=== PATIENT | female | born 1960 | race Caucasian/White ===

== ENCOUNTER → 2017-06-16 | Outpatient (CLI) | payer OTHER ==
[~2017-06-16] MED LIST: ASPI-624 PO; HYDR200T46 PO; IBUP-1773 PO; LVT.112T PO; MTF500T PO; MULT-974 PO; PRD10T PO
--- NOTE | 2017-06-16 17:06 | Diagnostic Imaging Report ---
PROCEDURE: CT chest without contrast. TECHNIQUE: Multiple contiguous axial images were obtained through the chest without the use of intravenous contrast. INDICATION: Pulmonary edema. Cough. COMPARISON: 11/08/2013. FINDINGS: Lungs demonstrate interstitial thickening with fibrotic changes and minimal honeycombing in the lung bases along the subpleural aspect of each lungs in the bases. 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 The fibrotic changes are basilar and peripheral predominant. There is mild bronchiectasis in the lung bases. There is no significant consolidation, mass or suspicious nodule identified. No significant pleural or pericardial effusion. The thoracic aorta is normal in caliber. No mediastinal mass or lymphadenopathy is seen. The hilar vessels are not opacified with no obvious hilar lymphadenopathy identified. No axillary lymphadenopathy seen. Sections of the upper abdomen demonstrate cholecystectomy clips. The osseous structures demonstrate bridging syndesmophytes and mild sclerotic curvature. IMPRESSION: Fibrotic changes predominantly in the lung bases and periphery of the lungs probably related to fibrotic NSIP with no significant change from 11/08/2013. Dictated by: Dictated on workstation # [id number]
== END ==
LOC: RAD 12:35
PROVIDERS: ATTEND Nurse Practitioner Family
DX: J84.10 Pulmonary fibrosis, unspecified (principal)
CPT/HCPCS: 71250

== ENCOUNTER → 2017-06-29 | Outpatient (CLI) | payer OTHER ==
[2017-06-29 12:14] LABS: BASOPHILS % (AUTO) 0 % (0-10); EOSINOPHILS % (AUTO) 0 % (0-10); LYMPHOCYTES # (AUTO) 1.2 X 10^3 (1.0-4.0); LYMPHOCYTES % (AUTO) 12 % (12-44); MEAN CORPUSCULAR HEMOGLOBIN 26 PG (25-34); MEAN CORPUSCULAR HGB CONC 31 G/DL (32-36); MEAN CORPUSCULAR VOLUME 84 FL (80-99); MEAN PLATELET VOLUME 9.4 FL (7.4-10.4); MONOCYTES # (AUTO) 0.3 X 10^3 (0.0-1.0); MONOCYTES % (AUTO) 3 % (0-12); NEUTROPHILS # (AUTO) 8.4 X 10^3 (1.8-7.8); NEUTROPHILS % (AUTO) 85 % (42-75); PLATELET COUNT 332 10^3/uL (130-400); RED BLOOD COUNT 4.83 10^6/uL (4.35-5.85); RED CELL DISTRIBUTION WIDTH 14.9 % (10.0-14.5); WHITE BLOOD COUNT 9.9 10^3/uL (4.3-11.0)
[2017-06-29 12:38] LABS: ALANINE AMINOTRANSFERASE 18 U/L (0-55); ALBUMIN 3.8 GM/DL (3.2-4.5); ANION GAP 10 MMOL/L (5-14); ASPARTATE AMINO TRANSFERASE 11 U/L (5-34); BILIRUBIN,TOTAL 0.5 MG/DL (0.1-1.0); BLOOD UREA NITROGEN 17 MG/DL (7-18); BUN/CREATININE RATIO 22; CALCIUM 9.6 MG/DL (8.5-10.1); CARBON DIOXIDE 24 MMOL/L (21-32); CHLORIDE 102 MMOL/L (98-107); CREATININE SERUM 0.78 MG/DL (0.60-1.30); GFR ESTIMATED > 60; GLUCOSE 234 MG/DL (70-105); POTASSIUM 4.4 MMOL/L (3.6-5.0); SODIUM 136 MMOL/L (135-145); TOTAL PROTEIN 6.7 GM/DL (6.4-8.2); hs C REACTIVE PROTEIN 0.25 MG/DL (0.00-0.50)
[2017-06-29 12:49] LABS: ERYTHROCYTE SEDIMENTATION RATE 18 MM/HR (0-30)
[2017-06-30 16:44] LABS: ANCA PATTERN Not Indicated; ANTI NEUTROPHIL CYTOPLASM <1:20 (<1:20)
== END ==
LOC: LAB 11:42
PROVIDERS: ATTEND Nurse Practitioner Family
DX: M12.9 Arthropathy, unspecified (principal); J84.9 Interstitial pulmonary disease, unspecified
CPT/HCPCS: 36415; 80053; 85025; 85652; 86021; 86038; 86141

== ENCOUNTER → 2017-07-16 | Outpatient (CLI) | payer OTHER ==
[~2017-07-16] MED LIST changes: +RT-ALBUTEROL SULF 2.5 MG/3 ML PRE-MIX VIAL IH ONE
== END ==
LOC: RT 11:15
PROVIDERS: ATTEND Nurse Practitioner Family
DX: J84.9 Interstitial pulmonary disease, unspecified (principal); R06.00 Dyspnea, unspecified; M12.9 Arthropathy, unspecified
CPT/HCPCS: 94060; 94726; 94729

== ENCOUNTER → 2017-08-17 | Outpatient (CLI) | payer OTHER ==
[~2017-08-17] MED LIST changes: -RT-ALBUTEROL SULF 2.5 MG/3 ML PRE-MIX VIAL IH ONE
[2017-08-17 09:42] LABS: PEP REPORT SEE PATH REPORT
[2017-08-17 09:45] LABS: BASOPHILS # (AUTO) 0.1 10^3/uL (0.0-0.1); BASOPHILS % (AUTO) 0 % (0-10); EOSINOPHILS # (AUTO) 0.1 10^3/uL (0.0-0.3); EOSINOPHILS % (AUTO) 1 % (0-10); LYMPHOCYTES # (AUTO) 1.2 X 10^3 (1.0-4.0); LYMPHOCYTES % (AUTO) 11 % (12-44); MEAN CORPUSCULAR HEMOGLOBIN 26 PG (25-34); MEAN CORPUSCULAR HGB CONC 31 G/DL (32-36); MEAN CORPUSCULAR VOLUME 86 FL (80-99); MEAN PLATELET VOLUME 9.1 FL (7.4-10.4); MONOCYTES # (AUTO) 0.4 X 10^3 (0.0-1.0); MONOCYTES % (AUTO) 4 % (0-12); NEUTROPHILS % (AUTO) 85 % (42-75); PLATELET COUNT 322 10^3/uL (130-400); RED CELL DISTRIBUTION WIDTH 14.6 % (10.0-14.5); WHITE BLOOD COUNT 11.8 10^3/uL (4.3-11.0)
[2017-08-17 10:04] LABS: ALANINE AMINOTRANSFERASE 12 U/L (0-55); ALBUMIN 3.5 GM/DL (3.2-4.5); ANION GAP 13 MMOL/L (5-14); ASPARTATE AMINO TRANSFERASE 12 U/L (5-34); BILIRUBIN,TOTAL 0.5 MG/DL (0.1-1.0); BLOOD UREA NITROGEN 18 MG/DL (7-18); BUN/CREATININE RATIO 23; CALCIUM 8.2 MG/DL (8.5-10.1); CARBON DIOXIDE 21 MMOL/L (21-32); CHLORIDE 103 MMOL/L (98-107); GFR ESTIMATED > 60; GLUCOSE 314 MG/DL (70-105); POTASSIUM 3.8 MMOL/L (3.6-5.0); SODIUM 137 MMOL/L (135-145); URIC ACID 2.8 MG/DL (2.6-7.2); hs C REACTIVE PROTEIN 1.08 MG/DL (0.00-0.50)
[2017-08-17 10:17] LABS: ERYTHROCYTE SEDIMENTATION RATE 21 MM/HR (0-30)
--- NOTE | 2017-08-17 11:15 | Diagnostic Imaging Report ---
EXAMINATION: Three views of the left hand and three views of the right hand are obtained. INDICATION: Rheumatoid arthritis. FINDINGS: Left hand radiographs demonstrate no erosive arthritic changes. There is mild joint space narrowing and osteophyte formation at the third metacarpophalangeal joint. Mild degenerative changes at the DIP and PIP joints seen. Right hand radiographs demonstrate no erosive arthritis with mild degenerative changes mostly at the DIP joints and at the carpometacarpal joint at the base of the thumb. IMPRESSION: No evidence of erosive arthritis. Mild degenerative changes. Dictated by: Dictated on workstation # [id number]
--- NOTE | 2017-08-17 20:07 | Diagnostic Imaging Report ---
Three views of the left foot and three views of the right foot. INDICATION: Rheumatoid arthritis. FINDINGS: Left foot: There is varus deformity at the tarsometatarsal joints and sclerotic changes. This could be secondary to old injury or from prior inflammatory arthritis. No erosive arthritic changes are seen. There is mild hallux valgus. Degenerative changes at the first tarsometatarsal joint seen. No acute fracture. Prominent calcaneal spurs and flattening of the plantar arch seen. Right foot: There are sclerotic changes at the tarsometatarsal joints probably related to degenerative changes. Also dorsal osteophytes at the navicular cuneiform articulation level are seen. There is a calcaneal spur and spurring at the Achilles tendon insertion. Flattening of the plantar arch is noted. IMPRESSION: Degenerative changes seen with flattening of the plantar arch more prominent on the left side. No evidence of erosive arthritis. Dictated by: Dictated on workstation # [id number]
[2017-08-18 05:18] LABS: IMMUNOGLOBULIN IGA 149 mg/dL (71-263)
[2017-08-18 08:25] LABS: VITAMIN D 25-HYDROXY (TOTAL) 19 ng/mL (30-100)
[2017-08-18 08:36] LABS: IMMUNOGLOBULIN IGG 579 mg/dL (672-1680)
[2017-08-18 08:37] LABS: IMMUNOGLOBULIN IGG1 450 mg/dL (382-929); IMMUNOGLOBULIN IGG2 75 mg/dL (242-700); IMMUNOGLOBULIN IGG3 43 mg/dL (22-176); IMMUNOGLOBULIN IGG4 33 mg/dL (0-86)
[2017-08-18 08:38] LABS: IMMUNOGLOBULIN IGM 47 mg/dL (47-209)
[2017-08-18 21:13] LABS: TB GOLD MITOGEN-NIL VALUE 3.36 IU/mL (0.50-10.00); TB GOLD QUANTIFERON INTERP Negative (Negative)
[2017-08-19 09:17] LABS: TB GOLD NIL VALUE 0.35 IU/mL (0.00-7.99); TB GOLD TB ANTIGEN-NIL VALUE <0.00 IU/mL (0.00-0.34)
[2017-08-19 09:27] LABS: CYCLIC CITRULLUINATED PEPTIDE 123.9 Units (0.0-19.0)
[2017-08-19 15:33] LABS: IMMUNOFIX PATH REPORT NUMBER Complete (Complete)
== END ==
LOC: RAD 09:07
PROVIDERS: ATTEND Internal Medicine Rheumatology
DX: M19.071 Primary osteoarthritis, right ankle and foot (principal); M19.072 Primary osteoarthritis, left ankle and foot; M19.041 Primary osteoarthritis, right hand; M19.042 Primary osteoarthritis, left hand; M05.79 Rheumatoid arthritis with rheumatoid factor of multiple sites without organ or systems involvement; J84.9 Interstitial pulmonary disease, unspecified
CPT/HCPCS: 36415; 80053; 80074; 82306; 82784; 82787; 84155; 84165; 84550; 85025; 85652; 86141; 86200; 86334; 86430; 86480

== ENCOUNTER → 2017-11-05 | Outpatient (CLI) | payer OTHER ==
--- NOTE | 2017-11-05 15:01 | Diagnostic Imaging Report ---
INDICATION: Routine screening. COMPARISON: 10/16/2015 and 04/18/2014. TECHNIQUE: Screening digital mammography was performed bilaterally with a Computer Aided Detection (CAD) system. FINDINGS: Scattered fibroglandular densities are identified bilaterally. There are scattered benign-appearing calcifications bilaterally. The parenchymal pattern is stable. No mass or malignant appearing microcalcifications are seen. The axillae are unremarkable. IMPRESSION: No mammographic features suspicious for malignancy are identified. ACR BI-RADS Category 2: Benign findings. Result letter will be mailed to the patient. Note: At least 10% of breast cancer is not imaged by mammography. Dictated by: Dictated on workstation # [id number]
== END ==
LOC: RAD 10:12
PROVIDERS: ATTEND Nurse Practitioner Family
DX: Z12.31 Encounter for screening mammogram for malignant neoplasm of breast (principal)
CPT/HCPCS: 77067

== ENCOUNTER → 2017-12-07 | Outpatient (CLI) | payer OTHER ==
[~2017-12-07] MED LIST changes: +CATHETER FLUSH 10 ML SYR IV PRN; +REGADENOSON 0.4 MG/5 ML SYR (LEXISCAN) IV ONE
[2017-12-07 13:12] VITALS: BP 123/74
--- NOTE | 2017-12-07 20:58 | STRESS TEST ---
DATE OF SERVICE: 12/07/2017 PROCEDURE PERFORMED: Resting and post regadenoson technetium-99m Tetrofosmin SPECT CT imaging. ORDERING PHYSICIAN: RADHA Tanner. PRIMARY PHYSICIAN: Addis Ramirez DO. CLINICAL DIAGNOSIS: Shortness of breath, chest discomfort. Baseline images were carried out after injection of 10.35 mCi of technetium-99m Tetrofosmin. This was followed by 0.4 mg of regadenoson and 29.6 mCi technetium-99m Tetrofosmin for stress imaging. The electrocardiogram showed sinus rhythm with isolated premature ventricular contractions. The electrocardiogram did not change significantly with the regadenoson infusion. The patient tolerated the procedure well. Review of images at rest and following stress does not indicate any significant perfusion defects consistent with significant myocardial ischemia or infarction. Gated images show normal global left ventricular systolic function, normal regional wall motion. Left ventricular ejection fraction is calculated to be 59%. Left ventricular end diastolic volume is 48 mL. TID is absent (1.07). CONCLUSIONS: 1. No evidence of significant myocardial ischemia or infarction in this study. 2. Normal regional wall motion. 3. Normal global left ventricular systolic function with a calculated ejection fraction of 59%. Job ID: [id number] DocumentID: [id number] Dictated Date: 12/07/2017 17:47:09 [employer] Date: 12/07/2017 20:58:03 Dictated By: KATHLEEN ESCALERA MD, MA, FACP, FACC,
== END ==
LOC: CARD 10:14
PROVIDERS: ATTEND Nurse Practitioner Family
DX: I36.1 Nonrheumatic tricuspid (valve) insufficiency (principal); R07.89 Other chest pain; R06.09 Other forms of dyspnea
CPT/HCPCS: 78452; 93017

== ENCOUNTER 2017-12-23 09:00 | Outpatient (RCR) | payer OTHER ==
[2017-12-07 09:00] VITALS: BP 145/60
[2017-12-07 10:00] VITALS: BP 132/60
[2017-12-09 08:50] VITALS: BP 150/60
[2017-12-09 10:00] VITALS: BP 120/60
[2017-12-14 09:00] VITALS: BP 138/82
[2017-12-14 10:00] VITALS: BP 130/80
[2017-12-16 08:45] VITALS: BP 120/74
[2017-12-16 09:55] VITALS: BP 118/70
[2017-12-21 08:45] VITALS: BP 130/68
[2017-12-21 10:00] VITALS: BP 120/80
[2017-12-23 08:55] VITALS: BP 141/60
[~2017-12-23 09:00] MED LIST changes: -CATHETER FLUSH 10 ML SYR IV PRN; -REGADENOSON 0.4 MG/5 ML SYR (LEXISCAN) IV ONE
[2017-12-28 08:40] VITALS: BP 150/60
[2017-12-28 09:30] VITALS: BP 140/60
== END 2017-12-26 | disposition home or self-care (01) ==
LOC: PULM 09:00
PROVIDERS: ATTEND Nurse Practitioner Family
DX: J84.9 Interstitial pulmonary disease, unspecified (principal); J98.4 Other disorders of lung
CPT/HCPCS: 99211

== ENCOUNTER → 2018-01-17 | Outpatient (CLI) | payer OTHER ==
[2018-01-17 11:26] LABS: BUN/CREATININE RATIO 20; GFR ESTIMATED > 60
[2018-01-17 11:40] LABS: ABG BASE EXCESS 1.8 MMOL/L (-2.5-2.5); ABG OXYGEN SATURATION 99 % (94-100); ABG PCO2 47 MMHG (35-45); ABG PH 7.37 (7.37-7.43); ABG PO2 110 MMHG (79-93); ABG TCO2 27.7 MMOL/L (21.0-31.0)
[2018-01-17 11:41] LABS: ALLENS TEST YES-POS; INSPIRED O2 5; PATIENT TEMP 100.3; VENTILATOR NO
== END ==
LOC: LAB 10:51
PROVIDERS: ATTEND Nurse Practitioner Family
DX: J84.9 Interstitial pulmonary disease, unspecified (principal)
CPT/HCPCS: 36415; 36600; 82565; 82805; 84520

== ENCOUNTER → 2018-01-18 | Outpatient (CLI) | payer OTHER ==
[~2018-01-18] MED LIST changes: +CATHETER FLUSH 10 ML SYR IV PRN; +IOHEXOL 350 MG/ML 150 ML (OMNIPAQUE 350) VIAL IV ONE; +NS 250 ML (IVPB) BAG IV ONE; +RECEIVED CONTRAST (Hold Metformin) IV SCH
--- NOTE | 2018-01-18 12:10 | Diagnostic Imaging Report ---
PROCEDURE: CT angiography of the chest with contrast. TECHNIQUE: Multiple contiguous axial images were obtained through the chest after uneventful bolus administration of intravenous contrast. Reconstructed CTA MIP acquisitions were also performed. INDICATION: Interstitial lung disease. FINDINGS: The previous CT chest exam performed on 06/16/2017 noted fibrotic changes involving both lungs, primarily in the lung bases. In the interval since the previous study however, groundglass densities have developed throughout the lungs with sparing of the left upper lung. This appearance is nonspecific but may be secondary to inflammatory/infectious process. It would be less likely that this is related to pulmonary edema. There is no pleural fluid identified. Clinical followup is recommended. The heart is enlarged but stable when compared to the prior study. Dense coronary artery calcifications are again noted. The aorta is not abnormally dilated and there is no sign of dissection. There is no defect within the pulmonary arteries to indicate pulmonary embolus. The mediastinal and hilar nodes seen on the prior study do not appear to have changed significantly. The thyroid gland where visualized is unremarkable. There is no obvious breast mass. The sections through the upper abdomen show that the liver is prominent and of lower density than usually seen. This appearance does suggest fatty metamorphosis. The gallbladder is also surgically absent. There is no acute abnormality of the upper abdomen. The bone windows show no sign of a fracture or of a destructive lesion. IMPRESSION: 1. In the interval since the prior exam, vague groundglass densities have developed throughout the lungs with sparing of the left upper lung. These findings are nonspecific but could be secondary to an acute inflammatory/infectious process. It would be less likely that there is an element of pulmonary edema present. Clinical followup is recommended. 2. The overall appearance of the chest has not changed significantly, otherwise. In particular, there is no sign of dissection of the aorta or of a pulmonary embolus. 3. There is cardiomegaly and coronary artery disease. 4. The appearance of the liver does suggest fatty metamorphosis. Dictated by: Dictated on workstation # [id number]
== END ==
LOC: RAD 09:00
PROVIDERS: ATTEND Nurse Practitioner Family
DX: J98.4 Other disorders of lung (principal); J84.9 Interstitial pulmonary disease, unspecified; I51.7 Cardiomegaly; I25.10 Atherosclerotic heart disease of native coronary artery without angina pectoris; G47.10 Hypersomnia, unspecified
CPT/HCPCS: 71275

== ENCOUNTER 2018-01-27 09:00 | Outpatient (RCR) | payer OTHER ==
[2018-01-04 08:35] VITALS: BP 145/60
[2018-01-04 10:00] VITALS: BP 120/70
[2018-01-06 08:35] VITALS: BP 146/80
[2018-01-06 08:40] VITALS: BP 146/80
[2018-01-06 09:45] VITALS: BP 130/78
[2018-01-11 08:45] VITALS: BP 120/60
[2018-01-11 09:40] VITALS: BP 140/40
[2018-01-13 08:35] VITALS: BP 125/70
[2018-01-13 09:33] VITALS: BP 120/60
[2018-01-20 08:45] VITALS: BP 120/60
[2018-01-20 09:40] VITALS: BP 130/70
[2018-01-25 08:40] VITALS: BP 120/80
[2018-01-25 09:55] VITALS: BP 118/70
[2018-01-27 09:00] VITALS: BP 104/60
[~2018-01-27 09:00] MED LIST changes: -CATHETER FLUSH 10 ML SYR IV PRN; -IOHEXOL 350 MG/ML 150 ML (OMNIPAQUE 350) VIAL IV ONE; -NS 250 ML (IVPB) BAG IV ONE; -RECEIVED CONTRAST (Hold Metformin) IV SCH
[2018-01-27 10:00] VITALS: BP 122/60
== END 2018-04-04 | disposition home or self-care (01) ==
LOC: PULM 09:00
PROVIDERS: ATTEND Nurse Practitioner Family
DX: J84.9 Interstitial pulmonary disease, unspecified (principal); J98.4 Other disorders of lung

== ENCOUNTER 2018-02-01 20:00 | Outpatient (CLI) | payer OTHER | END 2018-02-02 07:07 | disposition home or self-care (01) | LOC: SLEEP 20:00 | PROVIDERS: ATTEND Nurse Practitioner Family | DX: G47.10 Hypersomnia, unspecified (principal); G47.30 Sleep apnea, unspecified; G47.50 Parasomnia, unspecified | CPT/HCPCS: 95810 ==